=== PATIENT | male | born 1980 | race Caucasian/White ===

== ENCOUNTER 2016-07-20 21:12 | Emergency (ER) | payer OTHER ==
[~2016-07-20] VITALS: Ht 175.3 cm; Wt 63.3 kg
[~2016-07-20 21:12] MED LIST: ALBUTEROL SULF8.5 GM IH; ANTIVERT25 MG PO; ELIMITE 5% CREA60 GM TP; ENDOCET 5-3251 EACH PO; FLEXERIL10 MG PO; FLOMAX0.4 MG PO; FLONASE16 G1 BOTH NARES; MUCUS ER600 MG PO; NAPROSYN500 MG PO; NAPROXEN500 MG PO; NASONEX17 GM BOTH NARES; ONDANSETRON ODT4 MG PO; PREDNISONE20 MG PO; TAMSULOSIN HCL0.4 MG PO; TYLENOL REGULA325 MG PO; VIBRAMYCIN100 MG PO; ZYRTEC10 M2 PO
[2016-07-20 22:53] LABS: HEMATOCRIT 43.9 % (38.0-50.0); MCH 31.2 PG (29.0-34.0); MCHC 33.9 G/DL (30.0-36.0); MCV 91.8 FL (86-99); MEAN PLAT.VOLUME 9.5 uM^3 (9.0-12.4); PLATELET COUNT 303 K/uL (156-360); RBC DIS.WIDTH-CV 12.1 % (11.8-14.6); RBC DIS.WIDTH-SD 40.5 % (39-53); RED BLOOD COUNT 4.78 M/uL (4.00-5.50); WHITE BLOOD COUNT 8.6 K/uL (4.1-10.2)
[2016-07-20 23:05] LABS: CHLORIDE 108 mEq/L (99-109); D-DIMER ELISA 0.29 mg/L FEU (< 0.57); POTASSIUM 4.2 mEq/L (3.7-5.4); SODIUM 141 mEq/L (136-147)
[2016-07-20 23:06] LABS: GLUCOSE 90 mg/dL (70-99)
[2016-07-20 23:08] LABS: ANION GAP 7 MEQ/L (2-14)
[2016-07-20 23:10] LABS: GFR ESTIMATE (CALCULATED) > 59 mL/min/
[2016-07-20 23:11] LABS: UREA NITROGEN (BUN) 17 mg/dL (9-23)
[2016-07-20 23:14] LABS: TROP-I INTERPRETATION NEGATIVE; TROPONIN-I < 0.01 ng/mL (0.0-0.30)
[2016-07-20] MEDS ORDERED: MOTRIN600 MG PO (23:58)
[2016-07-21 00:26] VITALS: BP 112/70
== END 2016-07-21 00:27 | disposition home or self-care (01) ==
LOC: EME 21:12
DX: R07.9 Chest pain, unspecified (principal); Z82.49 Family history of ischemic heart disease and other diseases of the circulatory system; Z83.2 Family history of diseases of the blood and blood-forming organs and certain disorders involving the immune mechanism; F17.200 Nicotine dependence, unspecified, uncomplicated
CPT/HCPCS: 71020; 80048; 84484; 85027; 85379; 93005; 99281; 99283

== ENCOUNTER 2017-02-22 10:26 | Emergency (ER) | payer SELFPAY ==
[~2017-02-22] VITALS: Ht 175.3 cm; Wt 65.3 kg
[~2017-02-22 10:26] MED LIST changes: +MOTRIN600 MG PO
[2017-02-22 10:58] LABS: EOSINOPHIL (%) 2.8 % (0-5); EOSINOPHIL COUNT 0.2 K/uL (0-0.3); HEMATOCRIT 41.9 % (38.0-50.0); IMMATURE GRANULOCYTE (%) 0.5 % (0.0-0.7); INSTRUMENT ABS NEUTROPHIL CT 3.6 K/uL; LYMPHOCYTE COUNT 2.2 K/uL (1.0-2.8); MCH 31.6 PG (29.0-34.0); MCHC 34.8 G/DL (30.0-36.0); MCV 90.7 FL (86-99); MEAN PLAT.VOLUME 9.4 uM^3 (9.0-12.4); MONOCYTE (%) 7.7 % (3-12); MONOCYTE COUNT 0.5 K/uL (0-0.8); NEUTROPHIL (%) 54.6 % (45-76); NEUTROPHIL COUNT 3.6 K/uL (1.8-6.4); PLATELET COUNT 293 K/uL (156-360); RBC DIS.WIDTH-CV 12.8 % (11.8-14.6); RBC DIS.WIDTH-SD 42.1 % (39-53); RED BLOOD COUNT 4.62 M/uL (4.00-5.50); WHITE BLOOD COUNT 6.5 K/uL (4.1-10.2)
[2017-02-22 11:09] LABS: CHLORIDE 113 mEq/L (99-109); POTASSIUM 3.6 mEq/L (3.7-5.4); SODIUM 140 mEq/L (136-147)
[2017-02-22 11:11] LABS: GLUCOSE 98 mg/dL (70-99)
[2017-02-22 11:12] LABS: ANION GAP 10 MEQ/L (2-14)
[2017-02-22 11:15] LABS: GFR ESTIMATE (CALCULATED) > 59 mL/min/; UREA NITROGEN (BUN) 19 mg/dL (9-23)
[2017-02-22 12:45] VITALS: BP 112/69
== END 2017-02-22 12:51 | disposition home or self-care (01) ==
LOC: EME 10:26
PROVIDERS: Emergency Medicine
DX: R51 Headache (principal); R20.0 Anesthesia of skin; R53.83 Other fatigue; G93.0 Cerebral cysts; G93.89 Other specified disorders of brain; Z87.891 Personal history of nicotine dependence
CPT/HCPCS: 70450; 80048; 85025; 99281; 99284

== ENCOUNTER 2017-03-08 09:26 | Emergency (ER) | payer SELFPAY ==
[~2017-03-08] VITALS: Ht 175.3 cm; Wt 64.0 kg
[2017-03-08 09:52] VITALS: BP 95/71
[2017-03-08] MEDS ORDERED: PERCOCET 5/31 TABLET PO (12:28)
[2017-03-08] MEDS ORDERED: TESSALON PERLE100 MG PO (12:52)
[2017-03-08] MEDS ORDERED: VENTOLIN HFA18 GM IH (12:52)
== END 2017-03-08 13:01 | disposition home or self-care (01) ==
LOC: EME 09:26
DX: J06.9 Acute upper respiratory infection, unspecified (principal); Z72.0 Tobacco use; Z88.0 Allergy status to penicillin
CPT/HCPCS: 71020; 99281; 99283

== ENCOUNTER 2017-08-22 23:04 | Emergency (ER) | payer SELFPAY ==
[~2017-08-22] VITALS: Ht 170.2 cm; Wt 63.9 kg
[~2017-08-22 23:04] MED LIST changes: +PERCOCET 5/31 TABLET PO; +TESSALON PERLE100 MG PO; +VENTOLIN HFA18 GM IH
[2017-08-22] MEDS ORDERED: PHRENILIN FORT1 EAC1 PO (23:20)
[2017-08-22] MEDS ORDERED: OXYCODONE HCL15 MG PO (23:20)
[2017-08-22 23:56] LABS: HEMATOCRIT 42.2 % (38.0-50.0); MCH 32.2 PG (29.0-34.0); MCHC 35.5 G/DL (30.0-36.0); MCV 90.6 FL (86-99); PLATELET COUNT 439 K/uL (156-360); RBC DIS.WIDTH-CV 12.1 % (11.8-14.6); RBC DIS.WIDTH-SD 40.2 % (39-53); RED BLOOD COUNT 4.66 M/uL (4.00-5.50); WHITE BLOOD COUNT 8.4 K/uL (4.1-10.2)
[2017-08-23 00:12] LABS: ALBUMIN 4.8 g/dL (3.2-4.8); CHLORIDE 105 mEq/L (99-109); POTASSIUM 3.9 mEq/L (3.7-5.4); SODIUM 141 mEq/L (136-147)
[2017-08-23 00:14] LABS: GLUCOSE 100 mg/dL (70-99); TOTAL PROTEIN 7.6 g/dL (6.4-8.3)
[2017-08-23 00:16] LABS: TOTAL BILIRUBIN 0.5 mg/dL (0.0-1.0)
[2017-08-23 00:18] LABS: ALKALINE PHOSPHATASE 57 IU/L (3-129); GFR ESTIMATE (CALCULATED) > 59 mL/min/ (58.99-99999)
[2017-08-23 00:19] LABS: UREA NITROGEN (BUN) 15 mg/dL (9-23)
[2017-08-23 00:20] LABS: AST (GOT) 14 IU/L (2-34)
[2017-08-23 00:21] LABS: ALT (GPT) 23 IU/L (3-49); LIPASE 12 U/L (1.0-51.0)
[2017-08-23] MEDS ORDERED: ZOFRAN4 MG PO (01:24)
[2017-08-23 01:43] VITALS: BP 107/73
== END 2017-08-23 01:44 | disposition home or self-care (01) ==
LOC: EME 23:04
PROVIDERS: Emergency Medicine
DX: R51 Headache (principal); R11.2 Nausea with vomiting, unspecified; Z98.890 Other specified postprocedural states; Z48.811 Encounter for surgical aftercare following surgery on the nervous system; G93.89 Other specified disorders of brain; Z79.891 Long term (current) use of opiate analgesic; Z87.891 Personal history of nicotine dependence; Z87.442 Personal history of urinary calculi; Z88.0 Allergy status to penicillin
CPT/HCPCS: 70450; 80053; 83690; 85027; 99281; 99285; J2405; J7030

== ENCOUNTER 2017-10-23 12:29 | Emergency (ER) | payer SELFPAY ==
[~2017-10-23] VITALS: Ht 170.2 cm; Wt 65.5 kg
[~2017-10-23 12:29] MED LIST changes: +OXYCODONE HCL15 MG PO; +PHRENILIN FORT1 EAC1 PO; +ZOFRAN4 MG PO
[2017-10-23 17:09] VITALS: BP 116/66
== END 2017-10-23 17:09 | disposition home or self-care (01) ==
LOC: EME 12:29
DX: R51 Headache (principal); Z79.891 Long term (current) use of opiate analgesic; Z87.891 Personal history of nicotine dependence; Z98.890 Other specified postprocedural states; Z87.442 Personal history of urinary calculi; Z88.0 Allergy status to penicillin
CPT/HCPCS: 70450; 99281; 99283; J1100